=== PATIENT | male | born 1985 | race Caucasian/White ===

== ENCOUNTER 2022-12-20 09:47 | Outpatient (REF) | payer OTHER, SELFPAY ==
[2022-12-20 23:00] LABS: Campylobacter PCR Negative (Negative); Salmonella PCR Negative (Negative); Shiga Toxin PCR Negative (Negative); Shigella/Enteroinvasive Ecoli Negative (Negative)
[2022-12-22 18:05] LABS: Pancreatic Elastase, F 343 mcg/g
== END 2022-12-20 09:48 | disposition home or self-care (01) ==
LOC: LBN 09:47
PROVIDERS: PCP Nurse Practitioner Family; Visit Provider Surgery
DX: K52.9 Noninfective gastroenteritis and colitis, unspecified (principal); K92.1 Melena; K58.2 Mixed irritable bowel syndrome; R19.5 Other fecal abnormalities
CPT/HCPCS: 87505; 82656; 83630

== ENCOUNTER 2022-12-21 12:52 | Outpatient (CLI) | payer OTHER, SELFPAY ==
[2022-12-21 09:31] LABS: C-Reactive Protein 0.06 mg/dL (0.0-0.3); TSH (W/Ref FT4) 1.05 uIU/mL (0.36-3.74)
== END 2022-12-21 12:53 | disposition home or self-care (01) ==
LOC: LBO 04-12 12:52
PROVIDERS: PCP Nurse Practitioner Family; Visit Provider Surgery
DX: F43.10 Post-traumatic stress disorder, unspecified (principal); G47.00 Insomnia, unspecified; I10 Essential (primary) hypertension; K52.9 Noninfective gastroenteritis and colitis, unspecified; K92.1 Melena; R19.5 Other fecal abnormalities; Z77.29 Contact with and (suspected) exposure to other hazardous substances
CPT/HCPCS: 36415; 84443; 86140

== ENCOUNTER 2023-01-07 07:55 | Day surgery (SDC) | payer OTHER, SELFPAY ==
--- NOTE | 2023-01-06 21:39 | PDOC.DSDIS_ITS ---
Date of service: 01/07/23 Time of Service: 10:18 Discharge Plan Disposition Patient Disposition: Home Condition: Good Discharge Details Reason For Visit: stomach/colon scope Attending Provider: Jonelle Boyd Primary Care Provider: LIDIA WEBER Home Meds and New Rx's Prescriptions: New sucralfate [Carafate] 1 gram tablet 1 g PO HS Qty: 60 12RF Continued zolpidem [Ambien] 10 mg tablet 10 mg PO QHS PRN losartan 25 mg tablet 25 mg PO DAILY rosuvastatin 40 mg Tablet 20 mg PO DAILY Changed omeprazole 20 mg capsule,delayed release(DR/EC) 40 mg PO DAILY Qty: 0 0RF Discontinued polyethylene glycol 3350 17 gram/dose powder 238 g PO ONCE Qty: 238 0RF Rx Instructions: take per colonoscopy instructions bisacodyl [Dulcolax (bisacodyl)] 5 mg tablet,delayed release (DR/EC) 5 mg PO ONCE Qty: 4 0RF Rx Instructions: take per colonoscopy instructions Discharge Instructions Additional Instructions: [facility] Colonoscopy Post-O p Instructions Instructions for Everyone who is given Anesthesia: For your safety, please do the following for the next twenty-four (24) hours: *Do Not operate a motor vehicle (car, truck, motorcycle, etc.) *Do Not drink alcoholic beverages or use any recreational drugs for the first 24 hours or while taking pain medications. The medications in your body may have a reaction that can be dangerous. *Do Not make any important decisions or sign any important papers. Findings: HIatal hernia/bile reflux normal colon Follow up:01/20 at 1:30pm 1. No lifting over 20 pounds or strenuous activity for the first 24 hours after your procedure. After 24 hours there are no restrictions on your activity but you may feel fatigued for a few days. 2. After you arrive home you may have a light meal and return to your normal diet as you can tolerate it without feeling sick to your stomach. 3. You may have a bloated, gaseous feeling in your belly (abdomen) after a colonoscopy. Passing gas and belching will help. Walking or lying down on your left side with your knees flexed may relieve the discomfort. Call the office at [phone] (Office) or [phone] (Hospital) right away if you notice any of the following: a.Vomiting of blood or ?coffee ground stools?. b.Rectal bleeding 1Tbsp, blood clots or continuous bleeding. c.Severe belly (abdominal) pain. d.A hard distended belly (abdomen) and an inability to pass gas. 4. Please don?t expect to have a normal BM (bowel movement) for 2-3 days after your procedure. 5. If there are questions regarding the findings of your procedure, please contact your doctor 6. If you are unable to contact your doctor with a problem, contact the hospital at [phone]. 7. Continue all your regular medications unless directed otherwise. I understand the above instructions and have no questions. Signature of Patient or Adult Escort Name of Responsible Adult Escort Signature of Nurse Date/Time Activity:: see above Diet:: see above Discharge Orders Discharge Orders: Discharge Order (Routine); Ordered 01/07/23 Ordered By: Jonelle Boyd DS: Diagnosis Discharge Diagnosis (1) Chronic diarrhea: Status: Acute (2) Dark stools: Status: Acute (3) HTN (hypertension), benign: Status: Acute (4) Melena: Status: Acute (5) Heavy metal exposure: Status: Acute Asessment and Plan: The patient is seen and examined after their colonoscopy.? The patient has been able to pass gas.? They are not having abdominal pain.? They have been able to tolerate liquids and a snack.? They do not have any nausea or vomiting.? They are not having any chest pain or shortness of breath.??? They are not having any rectal bleeding. Their vital signs have been stable-see nursing notes. We discussed findings during their colonoscopy, and any biopsies that were done/polyps that were removed. The patient will be sent a letter with any biopsy results, and when to repeat the colonoscopy.-see discharge instructions. Patient was given explicit instructions to follow-up regarding colonoscopy-refer to discharge instructions.? We reviewed resumption of medications. Patient verbalized understanding and discharged in stable and satisfactory con dition- See nursing notes. (6) Duodenogastric reflux of bile: Status: Acute (7) Hiatal hernia: Status: Chronic
--- NOTE | 2023-01-06 21:42 | ENDO_ITS ---
Date of service: 01/07/23 Time of Service: 10:09 Endoscopy Report DATE OF PROCEDURE: 01/07/23 PRE-OP DIAGNOSIS: gerd/chronic abomdinal pain/naseu POST-OP DIAGNOSIS: other (bile reflux/3cm sliding H. hernia ) SURGEON: Jonelle Boyd ANESTHESIA TYPE: General:No Airway ESTIMATED BLOOD LOSS: 2 PATHOLOGY: other COMPLICATIONS: None DISPOSITION: same day PROCEDURE DESCRIPTION: After informed consent was obtained the patient was take to the procedure room and placed in a supine position. Monitors were applied and a time out was done. The patients name, date of , procedure type, allergies to medications and metal in their body was reviewed. A bite block was placed and the patient was sedated. Once sedated and comfortable the gastroscope was advanced through the oropharynx which was grossly normal into the esophagus. The proximal and mid- esophagus were nl. Distal esophagus shows no: varices, diverticula, or stricture. He does have 3 cm sliding-type hiatal hernia. The scope was advanced into the stomach and through the pylorus into the 3rd portion of the duodenum. The duodenum was noted to be normal. The scope was were down into the jejunum. There is a normal villous pattern to the mucosa. Biopsies were done, all specimens are retrieved and no bleeding is noted. Upon entering the stomach there is noted to be bile refluxing through the pylorus. There is no gastritis or ulceration noted. There are no polyps. The scope was retracted back into the stomach and biopsies were done to rule out H. pylori. The scope was retroflexed. The cardia and fundus were noted to be normal. The scope was retracted back into the esophagus and biopsies were done of the GE junction to rule out Gibson's. The Z line was regular. The GE junction was at 38 biopsies are taken of the distal esophagus which is at 41 cm. Cm. The scope was removed.
--- NOTE | 2023-01-06 21:43 | W.COLOREPORT ---
Date of service: 01/07/23 Time of Service: 09:00 Colonoscopy Report Date of procedure: 01/07/23 Pre-op diagnosis general: melena/diarrhea/BRBPR/burn pit exposure Post-op diagnosis procedure note: same Surgeon: Jonelle Boyd Anesthesia Type: General:No Airway Estimated blood loss (mL): 2 Pathology: other Complications: None Disposition: same day Prep: Miralax/Dulcolax Retraction Time: 20 Procedure Description: After informed consent was obtained the patient was taken to the procedure room and placed in a left decubitous position. Monitors were applied and a time out was done. The patients name, date of , procedure, allergies to medications and metal in their body was reviewed. The patient was then sedated. Once sedated and comfortable a rectal exam was done. External exam was normal. Internal exam revealed a normal sphincter tone and no palpable masses. The scope was then introduced and retrofelexed. No internal hemorrhoids or fissueres were identified. The scope was then advanced to the cecum w/out difficulty. The TI and appendiceal orifice were identified. The scope was worked into the terminal ileum. the mucosa has a normal vascular and villous pattern. The prep was BBPS 2 in all segments for total of 6. The scope was then slowly retracted over 20 minutes back into the rectum. There are no polyps, AVMs, or diverticula visualized. The mucosa is pink and healthy with a normal vascular pattern. Biopsies are taken of the terminal ileum/cecum/80/60/40/20 centimeters and in the rectum. All specimens are retrieved and no bleeding is noted. The scope was removed and the patient was woken up and taken back to Same day surgery in stable condition. The patient tolerated the procedure well and there were no immediate complications. Follow up: The patient repeat a colonoscopy in 5 years they develop changes in bowel habits or other new gastrointestinal complaints.
[2023-01-07 08:05] VITALS: BP 128/89; PULSE 82; RESP 18; TEMP 36.5; O2SAT 99
[2023-01-07] MEDS: Lactated Ringers 1,000 ML 80 ML IV (08:19)
--- NOTE | 2023-01-07 08:25 | W.ANESPRE ---
General Info Date of Service Date Performed: 01/07/23 Height: 5 ft 9 in Weight: 78.3 kg Body Mass Index (BMI): 25.4 Surgical Procedure: Operation Date: 01/07/23 09:05 Proposed Procedure Side Surgeon p Colonoscopy/Gastroscopy w/Biopsies Jonelle Boyd DO Meds Allergies and Home Medications Allergies Allergy/AdvReac Type Severity Reaction Status Date / Time No Known Drug Allergies Allergy Unknown Verified 01/07/23 08:11 Home Medication Medication Instructions Recorded losartan 25 mg tablet 25 mg PO DAILY 12/10/22 omeprazole 20 mg capsule,delayed 20 mg PO DAILY 12/10/22 release zolpidem 10 mg tablet (Ambien) 10 mg PO QHS PRN 12/16/22 rosuvastatin 40 mg tablet 20 mg PO DAILY 01/06/23 Current Visit Medications: Current Medications Generic Name Dose Route Start Last Admin Trade Name Freq PRN Reason Stop Dose Admin Hyoscyamine Sulfate 0.125 mg 01/07/23 09:37 Hyoscyamine 0.125 Mg Sl/Oral/Chew SL 02/06/23 09:36 DIRECTED PRN Ringer's Solution 1,000 mls @ 80 mls/hr 01/07/23 06:00 01/07/23 08:19 IV 01/07/23 23:59 80 mls/hr INFUSION TIBURCIO Administration IV Miscellaneous Supplies 1 each 01/07/23 06:00 Iv Access IV 01/07/23 23:59 DIRECTED TIBURCIO Ondansetron HCl 4 mg 01/07/23 09:37 Ondansetron 4 Mg/2 Ml Vial IVP 02/06/23 09:36 Q4H PRN PRN Nausea / Vomiting Sodium Chloride 0 ml 01/07/23 06:00 Normal Saline Flush 10 Ml Syr IV 01/07/23 23:59 PRN PRN Sodium Chloride 0 ml 01/07/23 06:00 Normal Saline 10 Ml Vial IJ 01/07/23 23:59 DIRECTED PRN Sterile Water 0 ml 01/07/23 06:00 Water,Injection,Sterile 10 Ml Vial IJ 01/07/23 23:59 DIRECTED PRN PFSH Active Problems Active Problems: Problem Status Onset Code Heavy metal exposure Z77.018 Chronic diarrhea K52.9 Dark stools R19.5 PTSD (post-traumatic stress disorder) F43.10 HTN (hypertension), benign I10 Insomnia G47.00 Exposure to toxic substance Z77.29 Meldaysi K92.1 Medical History Medical History Acid reflux Nephrolithiasis Surgical History Surgical History Hx of LASIK Tobacco Smoking/Tobacco Use Status: Never Alcohol Alcohol Intake: current Alcohol intake frequency: a few times a week Alcohol type: beer Substance Use Substance use: Daily Substance use type: marijuana Vital Signs and Lab Results Vital Signs Most Recent Vital Signs in EMR: Most Recent Vital Signs Temp Pulse Resp BP Pulse Ox 36.5 C 82 18 128/89 99 01/07/23 08:05 01/07/23 08:05 01/07/23 08:05 01/07/23 08:05 01/07/23 08:05 Lab Results Blood Type / Crossmatch: No Data to Display Complete Blood Count: No Data to Display Complete Metabolic Panel: C-Reactive Protein 0.06 mg/dL (0.0-0.3) 12/21/22 08:53 Liver Function Panel: No Data to Display Coagulation Panel: No Data to Display Cardiac Panel: No Data to Display Arterial Blood Gas: No Data to Display Venous Blood Gas: No Data to Display Pancreas Panel: No Data to Display Thyroid Panel: Thyroid Stimulating Hormone (TSH) 1.05 uIU/mL (0.36-3.74) 12/21/22 08:53 Infectious Disease: No Data to Display Blood Cultures: No Data to Display Toxicology Panel: No Data to Display Anesthesia Assessment and Plan Anesthesia History Personal History: No History of Anesthesia Complications Family History: No Family History of Anesthesia Complications Exercise Tolerance Exercise Tolerance: Metabolic Equivalents>4 Pertinent Negatives Pertinent Negatives: No Symptoms of GERD, No Major Cardiovascular Symptoms or Complaints, No Major Pulmonary Symptoms or Complaints and No History of CVA/TIA Cardiac & Pulmonary Exam Cardiac Exam: Normal S1/S2 Heart Sounds Pulmonary Exam: Clear Bilateral Breath Sounds Implantable Cardiac Device Does patient have a Pacemaker or an ICD?: No Airway Exam Known Difficult Airway: No Mallampati Class: 2 Mouth Opening: Normal (> 3cm) Thyromental Distance: Less than 3 cm Neck Range of Motion: Full ROM Neck Circumference: Normal Teeth Condition: Normal Dentition (prominent front teeth) ASA Classification ASA Score: ASA 2 Emergency Case?: No NPO Status NPO Status: NPO Clears >2 hours, Solids >8 hours Anesthesia Plan Resuscitation Status: Full Code Anesthesia Technique: General Anesthesia Airway Planned: Natural Airway Monitors Used: Standard Monitors Preoperative Comments:: PTSD and daily marijuana use
[2023-01-07 09:00] VITALS: BMI 25.4
--- NOTE | 2023-01-07 09:24 | BOWEL_PTH ---
PATIENT: Dom Perez LOC: [facility] U#:[id number] AGE/SX: 37/M ROOM: RE01/07/[address]: Jonelle Boyd : 1985 BED: DIS: 01/07/2023 SPEC #: [id number] RECD: 01/07/23 12:43 STATUS: [facility] #: [id number] MATT: 01/07/23 09:[address]: Jonelle Boyd DEPT: Surgical Specimen RECD BY: Prema Grover ENTERED: 01/07/23 12:46 SP TYPE: Bowel OTHR DR: LIDIA WEBER Tissues: 1 - BIOPSY BOWEL 2 - BIOPSY BOWEL 3 - STOMACH BIOPSY 4 - STOMACH BIOPSY 5 - ESOPHAGUS BIOPSY 6 - ESOPHAGUS BIOPSY 7 - ESOPHAGUS BIOPSY 8 - BIOPSY BOWEL 9 - BIOPSY BOWEL 10 - BIOPSY BOWEL 11 - BIOPSY BOWEL 12 - BIOPSY BOWEL 13 - BIOPSY BOWEL 14 - BIOPSY BOWEL Procedures: GROSS AND MICRO LEVEL 4 Comments: [id number]
[2023-01-07 10:07] VITALS: BP 101/66; PULSE 76; RESP 16; TEMP 36.5; O2SAT 97
--- NOTE | 2023-01-07 10:25 | W.ANESPOSTOP ---
Postoperative Evaluation Date, Time and Location Date Performed: 01/07/23 Time Performed: 10:16 Patient Location: Day Surgery Unit Vital Signs Most Recent Imported Vital Signs: Most Recent Vital Signs Temp Pulse Resp BP Pulse Ox 36.5 C 76 16 101/66 97 01/07/23 10:07 01/07/23 10:07 01/07/23 10:07 01/07/23 10:07 01/07/23 10:07 Pain Score Most Recent Pain Score: Most Recent Pain Score Pain Level 0 01/07/23 10:07 Assessment Mental Status: Awake (Alert & Oriented to Patient Baseline) Airway and Respiratory Function: Patent airway with normal (patient baseline) respiratory exam Cardiovascular Function: Hemodynamically Stable Hydration Status: Adequately Hydrated Nausea & Vomiting: No Nausea or Vomiting Pain: Pt. Denies Any Pain Peripheral Nerve Block: Patient did not receive a nerve block
[2023-01-07 10:37] VITALS: BP 108/76; PULSE 68; RESP 16; TEMP 36.5; O2SAT 98
== END 2023-01-07 10:55 | disposition home or self-care (01) ==
PROVIDERS: PCP Nurse Practitioner Family; Visit Provider Surgery
PROC: (CPT 45380; principal; 2023-01-07 09:00)
DX: K92.1 Melena; Z77.018 Contact with and (suspected) exposure to other hazardous metals; F43.10 Post-traumatic stress disorder, unspecified; I10 Essential (primary) hypertension; G47.00 Insomnia, unspecified; K44.9 Diaphragmatic hernia without obstruction or gangrene; K21.9 Gastro-esophageal reflux disease without esophagitis; K31.89 Other diseases of stomach and duodenum
CPT/HCPCS: 45380; 43239; 88305; J2001; J2704

== ENCOUNTER 2023-02-07 15:13 | Outpatient (CLI) | payer OTHER, SELFPAY ==
[2023-02-08 20:58] LABS: Arsenic 2 ng/mL (<13); Cadmium <0.2 ng/mL (<5.0); Mercury 2 ng/mL (<10); Patient State VT; Venous/Capillary Venous
== END 2023-02-07 15:14 | disposition home or self-care (01) ==
PROVIDERS: PCP Nurse Practitioner Family; Visit Provider Surgery
DX: F43.10 Post-traumatic stress disorder, unspecified (principal); I10 Essential (primary) hypertension; K21.9 Gastro-esophageal reflux disease without esophagitis; K52.9 Noninfective gastroenteritis and colitis, unspecified; R19.5 Other fecal abnormalities; Z77.018 Contact with and (suspected) exposure to other hazardous metals; Z77.29 Contact with and (suspected) exposure to other hazardous substances
CPT/HCPCS: 36415; 82175; 82300; 83655; 83825

== ENCOUNTER 2023-02-21 14:55 | Outpatient (REF) | payer OTHER, SELFPAY ==
[2023-02-23 20:07] LABS: Arsenic Concentration w/Reflex 3 mcg/L; Arsenic, 24 Hr, U 5 mcg/24 h (<35); Cadmium, 24 Hr, U <0.5 mcg/24 h (<0.7); Lead, 24 Hr, U <1 mcg/24 h (<2); Mercury, 24 Hr, U <2 mcg/24 h (<2); Total Volume 2100 mL
== END 2023-02-21 14:56 | disposition home or self-care (01) ==
LOC: LBN 14:55
PROVIDERS: PCP Nurse Practitioner Family; Visit Provider Surgery
DX: Z77.29 Contact with and (suspected) exposure to other hazardous substances (principal); I10 Essential (primary) hypertension; K21.9 Gastro-esophageal reflux disease without esophagitis; Z77.018 Contact with and (suspected) exposure to other hazardous metals; K92.1 Melena
CPT/HCPCS: 82175; 82300; 83655; 83825; 81050